=== PATIENT | male | born 1975 | race Caucasian/White ===

== ENCOUNTER 2017-04-29 11:25 | Day surgery (SDC) | payer OTHER ==
[~2017-04-29] VITALS: Ht 170.2 cm; Wt 104.3 kg
[~2017-04-29 11:25] MED LIST: BAYER PLUS 500500 MG PO; CELEBREX100 MG PO; ELAVIL10 MG PO; ERGOCALCIF50000 UNIT PO; FLEXERIL10 MG PO; LYRICA100 MG PO; MOBIC7.5 MG PO; MOTRIN IB200 MG PO; MOTRIN600 MG PO; MOTRIN800 MG PO; PERCOCET 5/31 TABLET PO; VITAMIN D PO; VITAMIN D31000 UNIT PO
== END 2017-04-29 13:55 | disposition home or self-care (01) ==
LOC: PAIN 11:25 → SDC 12:45 → PAIN 12:45 → SDC 13:45 → PAIN 13:55
DX: M51.16 Intervertebral disc disorders with radiculopathy, lumbar region (principal); M47.26 Other spondylosis with radiculopathy, lumbar region; M53.3 Sacrococcygeal disorders, not elsewhere classified; M79.1 Myalgia; M25.78 Osteophyte, vertebrae; E66.9 Obesity, unspecified; Z68.36 Body mass index [BMI] 36.0-36.9, adult; Z87.891 Personal history of nicotine dependence; Z79.891 Long term (current) use of opiate analgesic
CPT/HCPCS: J1100

== ENCOUNTER 2017-05-27 13:08 | Day surgery (SDC) | payer OTHER ==
[~2017-05-27] VITALS: Ht 170.2 cm; Wt 104.3 kg
== END 2017-05-27 14:30 | disposition home or self-care (01) ==
LOC: PAIN 13:08
PROC: 3E0U3BZ Introduction of Anesthetic Agent into Joints, Percutaneous Approach (ICD-10-PCS; principal; 2017-05-27)
PROC: 3E0U33Z Introduction of Anti-inflammatory into Joints, Percutaneous Approach (ICD-10-PCS; principal; 2017-05-27)
DX: M16.12 Unilateral primary osteoarthritis, left hip (principal); M54.5 Low back pain; M79.604 Pain in right leg; M51.16 Intervertebral disc disorders with radiculopathy, lumbar region; M79.1 Myalgia; M47.26 Other spondylosis with radiculopathy, lumbar region; E66.9 Obesity, unspecified; Z87.891 Personal history of nicotine dependence

== ENCOUNTER → 2017-06-25 | Outpatient (CLI) | payer OTHER | END | disposition home or self-care (01) | LOC: CDC 12:47 | DX: G56.02 Carpal tunnel syndrome, left upper limb (principal) | CPT/HCPCS: 93000 ==

== ENCOUNTER 2017-10-28 12:40 | Day surgery (SDC) | payer OTHER ==
[~2017-10-28] VITALS: Ht 170.2 cm; Wt 99.3 kg
== END 2017-10-28 13:30 | disposition home or self-care (01) ==
LOC: PAIN 12:40 → SDC 14:30
DX: M47.26 Other spondylosis with radiculopathy, lumbar region (principal); M51.16 Intervertebral disc disorders with radiculopathy, lumbar region; M48.061 Spinal stenosis, lumbar region without neurogenic claudication; E66.9 Obesity, unspecified; Z68.34 Body mass index [BMI] 34.0-34.9, adult; Z87.891 Personal history of nicotine dependence; G56.01 Carpal tunnel syndrome, right upper limb; Z79.891 Long term (current) use of opiate analgesic; Q76.49 Other congenital malformations of spine, not associated with scoliosis
CPT/HCPCS: J1030; S0020

== ENCOUNTER 2017-12-10 10:39 | Day surgery (SDC) | payer OTHER ==
[~2017-12-10] VITALS: Ht 167.6 cm; Wt 102.5 kg
[~2017-12-10 10:39] MED LIST changes: +OMEPRAZOLE40 M1 PO
== END 2017-12-10 10:55 | disposition home or self-care (01) ==
LOC: PAIN 10:39 → SDC 11:15
DX: Z53.29 Procedure and treatment not carried out because of patient's decision for other reasons (principal)
CPT/HCPCS: J1030; J2250; J3010; S0020

== ENCOUNTER 2018-01-07 12:01 | Day surgery (SDC) | payer OTHER ==
[~2018-01-07] VITALS: Ht 167.6 cm; Wt 102.5 kg
== END 2018-01-07 13:28 | disposition home or self-care (01) ==
LOC: PAIN 12:01 → SDC 12:30 → PAIN 12:30
PROC: 015B3ZZ Destruction of Lumbar Nerve, Percutaneous Approach (ICD-10-PCS; principal; 2018-01-07)
DX: M47.816 Spondylosis without myelopathy or radiculopathy, lumbar region (principal); M54.16 Radiculopathy, lumbar region; Z79.891 Long term (current) use of opiate analgesic; M16.10 Unilateral primary osteoarthritis, unspecified hip; E66.9 Obesity, unspecified; Z68.35 Body mass index [BMI] 35.0-35.9, adult; Z87.891 Personal history of nicotine dependence
CPT/HCPCS: J1030; S0020